=== PATIENT | male | born 2000 | race Caucasian/White ===

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

== ENCOUNTER 2024-02-05 12:26 | Inpatient (IN) ==
[2024-02-05 13:57] LABS: ABS Basophils 0.1 10^3/uL (0.0-0.1); ABS Eosinophils 0.1 10^3/uL (0.0-0.5); ABS Lymphocytes 1.3 10^3/uL (1.0-4.8); ABS Monocytes 0.6 10^3/uL (0.0-1.1); ABS Neutrophils 3.5 10^3/uL (1.5-7.6); ABS Nucleated RBC 0.01 10^3/ul; Eosinophil % 1.4 %; Hematocrit 41.4 % (38-53); Hemoglobin 13.8 g/dL (13.2-16.3); Lymphocyte % 22.8 %; Mean Corpuscular Hemoglobin 29.7 pg (27-33); Mean Corpuscular Hgb Conc 33.4 g/dL (31-36); Mean Corpuscular Volume 89.1 fL (80-97); Mean Platelet Volume 9.5 fL (7.5-11.2); Nucleated Red Blood Cells % 0.1 %/100WBC (0.0-0.8); Platelet Count 193 10^3/uL (150-450); Red Blood Count 4.65 10^6/uL (4.06-5.63); White Blood Count 5.5 10^3/uL (3.6-10.2)
[2024-02-05 14:32] LABS: Albumin 4.5 g/dL (3.2-5.2); Calcium 9.3 mg/dL (8.6-10.3); Creatinine, Serum 1.01 mg/dL (0.67-1.17); Globulin 2.2 g/dL (2-4); Magnesium 1.9 mg/dL (1.9-2.7); Phosphorus 4.3 mg/dL (2.5-5.0); Potassium 4.1 mmol/L (3.5-5.0); Total Bilirubin 0.7 mg/dL (0.2-1.0); Total Protein 6.7 g/dL (6.4-8.9); eGFR CKD-EPI 108.5 (>60)
[2024-02-05 14:41] LABS: Urine Appearance Clear; Urine Bilirubin Negative (Negative); Urine Blood Negative (Negative); Urine Color Colorless; Urine Glucose Negative (Negative); Urine Ketones Negative (Negative); Urine Nitrite Negative (Negative); Urine Protein Negative (Negative); Urine Specific Gravity 1.012 (1.002-1.030); Urine Urobilinogen Negative (Negative); Urine pH 6.5 (5.0-8.0)
[2024-02-05 14:43] LABS: Urine Benzodiazepine Screen None Detected (None Detect); Urine Cannabinoids Screen None Detected (None Detect); Urine Opiates Screen None Detected (None Detect)
[2024-02-05] MEDS ORDERED: Al Hydrox/Mg Hydrox/Simet LIQ 30 ML UDC PO PRN (20:33)
[2024-02-06 08:30] LABS: HDL Cholesterol 50.5 mg/dL
[2024-02-06] MEDS: Nicotine PATCH 14 MG/24 HR PATCH TRANSDERM SCH (09:38)
[2024-02-06] MEDS: Vitamin THERAPEUTIC TAB PO SCH (09:38)
[2024-02-09] MEDS: Nicotine GUM 4MG FRUIT FLAVOR PO PRN (22:33)
[2024-02-09] MEDS: Nicotine Lozenge mini 2 MG LOZNG.MINI MT PRN (22:33)
[2024-02-11] MEDS: Nicotine GUM 4MG FRUIT FLAVOR PO ONE (06:59)
[2024-02-12] MEDS: Senna TAB 8.6 mg TAB PO PRN (09:35)
[2024-02-12] MEDS: Polyethylene Glycol 3350 17 GM PACKET PO SCH (09:35)
[2024-02-15] MEDS: Paliperidone SUSTENNA 234 MG/1.5 ML IM ONE (12:32)
[2024-02-17] MEDS: Polyethylene Glycol 3350 17 GM PACKET PO PRN (07:48)
[2024-02-18 09:20] VITALS: BP 111/75
[2024-02-18] MEDS: Paliperidone SUSTENNA 156 MG/1 ML IM ONE (12:10)
[2024-03-17] MEDS ORDERED: Paliperidone SUSTENNA 117 MG/0.75 ML IM SCH (10:00)
== END 2024-02-18 15:05 | disposition home or self-care (01) | DRG 753 ==
LOC: ED 12:26 → EDHOLD 20:19 → BSU 22:47
PROVIDERS: ADMIT Psychiatry & Neurology Addiction Psychiatry; ATTEND Psychiatry & Neurology Psychiatry